=== PATIENT | male | born 1990 | race African-American/Black ===

== ENCOUNTER 2017-09-04 11:44 | Emergency (ER) | payer OTHER ==
[2017-09-04] MEDS: DIPHTH,PERTUSS(ACELL),TET TOX 0.5 ML DISP.SYRIN. VAX IM (14:58)
== END 2017-09-04 15:04 | disposition home or self-care (01) ==
LOC: ER 15:04
DX: S00.83XA Contusion of other part of head, initial encounter (principal); S09.90XA Unspecified injury of head, initial encounter; F90.9 Attention-deficit hyperactivity disorder, unspecified type; Y04.0XXA Assault by unarmed brawl or fight, initial encounter; Y93.89 Activity, other specified; Y92.099 Unspecified place in other non-institutional residence as the place of occurrence of the external cause; Y99.8 Other external cause status
CPT/HCPCS: 70450; 70486; 72125; 90471; 90715; 99285-25

== ENCOUNTER 2020-04-26 18:10 | Emergency (ER) | payer SELFPAY ==
[~2020-04-26] VITALS: Ht 182.9 cm; Wt 80.0 kg
[2020-04-26 18:39] VITALS: BP 128/81
[2020-04-26] MEDS ORDERED: ACETAMINOPHEN 650 MG/20.3 ML SOLUTION. PO ONE (19:30)
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
== END 2020-04-26 20:27 | disposition home or self-care (01) ==
LOC: ER 18:10
DX: S00.83XA Contusion of other part of head, initial encounter (principal); R51 Headache; F17.200 Nicotine dependence, unspecified, uncomplicated; F90.9 Attention-deficit hyperactivity disorder, unspecified type; V49.49XA Driver injured in collision with other motor vehicles in traffic accident, initial encounter; Y93.89 Activity, other specified; Y92.488 Other paved roadways as the place of occurrence of the external cause; Y99.8 Other external cause status
CPT/HCPCS: 70450; 70486; 99285-25

== ENCOUNTER 2020-09-16 12:21 | Inpatient (IN) | payer OTHER ==
[~2020-09-16] VITALS: Ht 172.7 cm; Wt 86.4 kg
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
[2020-09-16 13:31] LABS: BILIRUBIN,URINE NEGATIVE (NEG); CLARITY,URINE CLEAR; COLOR,URINE YELLOW; NITRITE,URINE NEGATIVE (NEG); PH,URINE 6.5 (<5.0-8.0); PROTEIN,URINE NEGATIVE (NEG-TRACE)
[2020-09-16 13:39] LABS: AMPHETAMINE/METHAMPHETAMINE NEG (NEG); BARBITURATES NEG (NEG); BENZODIAZEPINES NEG (NEG); CANNABINOIDS NEG (NEG); COCAINE NEG (NEG); METHADONE NEG (NEG); OPIATES NEG (NEG); PHENCYCLIDINE NEG (NEG)
[2020-09-16 13:45] LABS: BACTERIA,URINE 0 /HPF (0-FEW); RBC,URINE 0 /HPF (0-2); WBC,URINE 0 /HPF (0-4)
[2020-09-16] MEDS ORDERED: ONDANSETRON PF 4 MG/2 ML VIAL. IV PRN (16:30)
[2020-09-16] MEDS ORDERED: ACETAMINOPHEN 325 MG TABLET. PO PRN (16:30)
[2020-09-16 16:58] LABS: BASO % 0 % (0-3); EOS % 0 % (0-3); HEMATOCRIT 40.4 % (39.0-53.0); HEMOGLOBIN 13.1 g/dL (13.0-17.5); LYMPH # 1.2 x10^3/uL (1.0-4.8); LYMPH % 19 % (24-48); MEAN CORPUSCULAR HEMOGLOBIN 25 pg (25-35); MEAN CORPUSCULAR HGB CONC 32 g/dL (31-37); MEAN CORPUSCULAR VOLUME 78 fL (79-100); MONO # 0.5 x10^3/uL (0.0-1.1); MONO % 8 % (0-9); NEUT # 4.6 x10^3/uL (1.8-7.7); NEUT % 73 % (31-73); PLATELET COUNT 356 x10^3/uL (140-400); RED BLOOD COUNT 5.15 x10^6/uL (4.30-5.70); RED CELL DISTRIBUTION WIDTH 15.3 % (11.5-14.5); WHITE BLOOD COUNT 6.4 x10^3/uL (4.0-11.0)
[2020-09-16 17:26] LABS: CREATININE 1.1 mg/dL (0.7-1.3); GFR 97.2; POTASSIUM 4.1 mmol/L (3.5-5.1)
[2020-09-16 17:30] LABS: ACETAMIN < 2.0 mcg/ml (10-30); ETHANOL < 10 mg/dL (0-10); SALIC < 2.8 mg/dL (2.8-20.0)
[2020-09-16 17:31] LABS: ALBUMIN 3.7 g/dL (3.4-5.0); ALBUMIN/GLOBULIN RATIO 0.9 (1.0-1.7); TOTAL BILIRUBIN 0.5 mg/dL (0.2-1.0); TOTAL PROTEIN 7.8 g/dL (6.4-8.2)
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
[2020-09-16 20:13] VITALS: BP 132/80
[2020-09-16 23:14] VITALS: BP 117/58
[2020-09-17 03:00] VITALS: BP 132/63
[2020-09-17 07:00] VITALS: BP 119/55
[2020-09-17] MEDS ORDERED: HALOPERIDOL LACTATE 5 MG/ML VIAL. IVP PRN (11:30)
[2020-09-17 15:00] VITALS: BP 138/70
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
[2020-09-17 19:54] VITALS: BP 119/65
[2020-09-18 03:56] VITALS: BP 157/73
[2020-09-18 07:00] VITALS: BP 120/58
--- NOTE | 2020-09-18 09:07 | EKG ---
[facility] [address] [place] [address] Test Date: 2020-09-18 Test Time: 08:58:12 Pat Name: ANDREW KLINE Department: Room: [facility] Gender: M Stave [employer] Roller: : 1990 Requested By: FORTINO CARBALLO Order Number: [id number] Reading MD: Measurements Intervals [place] Rate: 67 P: 54 IA: 140 QRS: 79 QRSD: 92 T: 22 QT: 348 QTc: 370 Interpretive Statements SINUS RHYTHM COMPLEX(ES) WITH ABERRANT INTRAVENTRICULAR CONDUCTION ABNORMAL ECG RI6.02 No previous ECG available for comparison
[2020-09-18 11:00] VITALS: BP 136/65
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
--- NOTE | 2020-09-18 12:24 | PDOC3 ---
Discharge Summary Visit Information Date of Admission: Sep 16, 2020 Date of Discharge: Sep 18, 2020 Final Diagnosis Problems Medical Problems: (1) Person under investigation for COVID-19 Status: Acute (2) Psychosis Status: Acute (3) Schizophrenia Status: Acute Brief Hospital Course Allergies Allergies Coded Allergies Type Severity Reaction Last Updated Verified No Known Drug Allergies 04/19/14 No Vital Signs Vital Signs Date Time Temp Pulse Resp B/P (MAP) Pulse Ox O2 Delivery O2 Flow Rate FiO2 09/18/20 11:00 98.5 91 18 136/65 (88) 98 Room Air 98.5 Lab Results Laboratory Tests Test 09/16/20 13:20 09/16/20 16:40 09/16/20 16:45 Urine Collection Type Unknown Urine Color Yellow Urine Clarity Clear Urine pH 6.5 (<5.0-8.0) Urine Specific [place] >=1.030 (1.000-1.030) Urine Protein Negative mg/dL (NEG-TRACE) Urine Glucose (UA) Negative mg/dL (NEG) Urine Ketones (Stick) 15 mg/dL (NEG) Urine Blood Negative (NEG) Urine Nitrite Negative (NEG) Urine Bilirubin Negative (NEG) Urine Urobilinogen Dipstick 1.0 mg/dL (0.2 mg/dL) Urine Leukocyte Esterase Negative (NEG) Urine RBC 0 /HPF (0-2) Urine WBC 0 /HPF (0-4) Urine Bacteria 0 /HPF (0-FEW) Urine Mucus Marked /LPF Urine Opiates Screen Neg (NEG) Urine Methadone Screen Neg (NEG) Urine Barbiturates Neg (NEG) Urine Phencyclidine Screen Neg (NEG) Urine Amphetamine/Methamphetamine Neg (NEG) Urine Benzodiazepines Screen Neg (NEG) Urine Cocaine Screen Neg (NEG) Urine Cannabinoids Screen Neg (NEG) Urine Ethyl Alcohol Neg (NEG) White Blood Count 6.4 x10^3/uL (4.0-11.0) Red Blood Count 5.15 x10^6/uL (4.30-5.70) Hemoglobin 13.1 g/dL (13.0-17.5) Hematocrit 40.4 % (39.0-53.0) Mean Corpuscular Volume 78 fL (79-100) Mean Corpuscular Hemoglobin 25 pg (25-35) Mean Corpuscular Hemoglobin Concent 32 g/dL (31-37) Red Cell Distribution Width 15.3 % (11.5-14.5) Platelet Count 356 x10^3/uL (140-400) Neutrophils (%) (Auto) 73 % (31-73) Lymphocytes (%) (Auto) 19 % (24-48) Monocytes (%) (Auto) 8 % (0-9) Eosinophils (%) (Auto) 0 % (0-3) Basophils (%) (Auto) 0 % (0-3) Neutrophils # (Auto) 4.6 x10^3/uL (1.8-7.7) Lymphocytes # (Auto) 1.2 x10^3/uL (1.0-4.8) Monocytes # (Auto) 0.5 x10^3/uL (0.0-1.1) Eosinophils # (Auto) 0.0 x10^3/uL (0.0-0.7) Basophils # (Auto) 0.0 x10^3/uL (0.0-0.2) Sodium Level 143 mmol/L (136-145) Potassium Level 4.1 mmol/L (3.5-5.1) Chloride Level 105 mmol/L (98-107) Carbon Dioxide Level 26 mmol/L (21-32) Anion Gap 12 (6-14) Blood Urea Nitrogen 9 mg/dL (8-26) Creatinine 1.1 mg/dL (0.7-1.3) Estimated GFR (Cockcroft-Gault) 97.2 BUN/Creatinine Ratio 8 (6-20) Glucose Level 87 mg/dL (70-99) Calcium Level 9.0 mg/dL (8.5-10.1) Total Bilirubin 0.5 mg/dL (0.2-1.0) Aspartate Amino Transf (AST/SGOT) 20 U/L (15-37) Alanine Aminotransferase (ALT/SGPT) 35 U/L (16-63) Alkaline Phosphatase 87 U/L (46-116) Total Protein 7.8 g/dL (6.4-8.2) Albumin 3.7 g/dL (3.4-5.0) Albumin/Globulin Ratio 0.9 (1.0-1.7) Salicylates Level < 2.8 mg/dL (2.8-20.0) Salicylate Last Dose Date Unknown Salicylate Last Dose Time Unknown Acetaminophen Level < 2.0 mcg/ml (10-30) Acetaminophen Last Dose Date Unknown Acetaminophen Last Dose Time Unknown Ethyl Alcohol Level < 10 mg/dL (0-10) Coronavirus (PCR) Not detected (Not Detected) Brief Hospital Course Mr. Goodwin is a 29 old male who presented with paranoid and aggressive behavior. He is homeless and has been attempting to get drug and alcohol treatment and needing somewhere safe to stay. He has been recommended referral to inpatient medical health treatment, but requires negative COVID-19 test. COVID-19 test is negative, patient medically stable to transfer. Discharge Information Condition at Discharge: Stable Disposition/Orders: D/C to Another Facility Miscellaneous Medications Info (No Known Medications Prior To Admisstion) Each, 1 EACH , (Reported) Entered as Reported by: NEHAL KEENAN on 04/19/14 0658 Justicifation of Admission Dx: Justifications for Admission: Justification of Admission Dx: N/A FORTINO CARBALLO MD Sep 18, 2020 12:24
[2020-09-18 15:00] VITALS: BP 142/81
--- NOTE | 2020-09-18 16:48 | NUR ---
Pt and all belongings escorted out by [facility] to [facility] voluntarily. IV discontinued by Moni JOEL. Pt showered earlier. Called and gave report to Yudith VALENTINO at 1450. Called and informed [facility] that pt was in route 15 mins out.
== END 2020-09-18 16:48 | DRG 885 ==
LOC: ER 12:21 → ED HOLD 16:25 → 6 SOUTH 19:29
PROVIDERS: ADMIT Internal Medicine; ATTEND Internal Medicine
DX: F20.81 Schizophreniform disorder (principal); Z20.822 Contact with and (suspected) exposure to COVID-19; Z59.0 Homelessness; F90.9 Attention-deficit hyperactivity disorder, unspecified type; Z79.899 Other long term (current) drug therapy
CPT/HCPCS: 36415; 80053; 80307; 80329; 81001; 85025; 93005; G0480; J2060; U0003; 99285-25; G0378